=== PATIENT | female | born 1950 | race Hispanic/Latino ===

== ENCOUNTER 2020-07-28 06:32 | Observation (INO) | payer MEDICARE ==
[2020-07-26 12:40] LABS: BASOPHILS # (AUTO) 0.1 (0.0-0.1); BASOPHILS % 1.1 % (0.0-1.0); EOSINOPHILS # (AUTO) 0.5 (0.0-0.4); EOSINOPHILS % 6.6 % (0.0-6.0); HEMATOCRIT 43.2 % (34.2-44.1); HEMOGLOBIN 13.8 g/dL (12.0-16.0); LYMPHOCYTES # (AUTO) 1.8 (1.0-3.2); LYMPHOCYTES % 25.2 % (18.0-39.1); MEAN CORPUSCULAR HEMOGLOBIN 30.4 pg (28-32); MEAN CORPUSCULAR HGB CONC 31.9 g/dL (31-35); MEAN CORPUSCULAR VOLUME 95.2 fL (81-99); MONOCYTES # (AUTO) 0.6 (0.2-0.8); MONOCYTES % 8.8 % (4.4-11.3); NEUTROPHILS # (AUTO) 4.1 (2.1-6.9); NEUTROPHILS % 58.2 % (38.7-80.0); PLATELET COUNT 376 x10e3/uL (140-360); RED BLOOD COUNT 4.54 x10e6/uL (3.6-5.1); RED CELL DISTRIBUTION WIDTH 13.2 % (11.7-14.4)
[2020-07-26 12:47] LABS: INR 0.84
[2020-07-26 12:48] LABS: PARTIAL THROMBOPLASTIN TIME 28.8 seconds (23.8-35.5)
[2020-07-26 12:49] LABS: ANION GAP 18.5 mmol/L (8-16); BLOOD UREA NITROGEN 15 mg/dL (7-26); BUN/CREATININE RATIO 18 (6-25); CALCIUM 9.3 mg/dL (8.4-10.2); CARBON DIOXIDE 23 mmol/L (22-29); CHLORIDE 101 mmol/L (98-107); CREATININE, SERUM 0.85 mg/dL (0.57-1.11); EST GLOMERULAR FILTRATION RATE > 60 ML/MIN (60-); GLUCOSE 107 mg/dL (74-118); POTASSIUM 4.5 mmol/L (3.5-5.1); SODIUM 138 mmol/L (136-145)
[~2020-07-28] VITALS: Ht 160 cm; Wt 59.0 kg
[~2020-07-28 06:32] MED LIST: ACYCLOVIR200 MG PO; AREDS PO; FLONASE ALLERG9.9 ML INH; METFORMIN HCL500 MG PO
[2020-07-28] MEDS ORDERED: VANCOMYCIN HCL 1 GM VIAL ONE (06:58)
[2020-07-28] MEDS ORDERED: LIDOCAINE 1% W/EPINEPHRINE 20 ML VIAL ONE (06:58)
[2020-07-28] MEDS ORDERED: THROMBIN FOR SOLN 5,000 UNIT VIAL ONE (06:58)
[2020-07-28] MEDS ORDERED: LIDOCAINE HCL (LTA) 4 ML SOLN ONE (07:24)
[2020-07-28] MEDS ORDERED: ACETAMINOPHEN 1000 MG/100 ML 100 ML IV ONE (07:24)
[2020-07-28] MEDS ORDERED: IBUPROFEN 800MG/ 200ML 200 ML IV ONE (07:24)
[2020-07-28] MEDS ORDERED: CEFAZOLIN SOD 1 GM/NS 50ML 50 ML IV ONE (08:00)
[2020-07-28] MEDS ORDERED: SCOPOLAMINE 1.5 MG PATCH ONE (08:53)
[2020-07-28] MEDS ORDERED: CARISOPRODOL 350 MG TAB PO PRN (10:00)
[2020-07-28] MEDS ORDERED: MAGNESIUM/ALUMINUM/SIMETHICONE 30 ML UDC PO PRN (10:00)
[2020-07-28] MEDS ORDERED: ONDANSETRON HCL INJ 2MG/ML 2ML 2 MG/ML VIAL IV PRN (10:00)
[2020-07-28] MEDS ORDERED: ACETAMINOPHEN 325 MG TAB PO PRN (10:00)
[2020-07-28] MEDS ORDERED: PROMETHAZINE HCL (IM) 25 MG/ML VIAL IM PRN (10:00)
[2020-07-28] MEDS ORDERED: FENTANYL CITRATE/PF 100MCG/2 ML INJ ONE (10:48)
[2020-07-28] MEDS ORDERED: HYDROCODON-ACE1 EA12 PO (11:12)
[2020-07-28] MEDS ORDERED: MORPHINE SULFATE INJ 4 MG/ML INJ 1ML ONE (12:30)
[2020-07-28] MEDS ORDERED: MIDAZOLAM HCL 2 MG/2 ML VIAL ONE (13:38)
[2020-07-28] MEDS ORDERED: SEVOFLURANE INHAL SOLN 250 ML PEN BTL ONE (13:47)
[2020-07-28] MEDS ORDERED: ONDANSETRON HCL INJ 2MG/ML 2ML 2 MG/ML VIAL ONE (13:47)
[2020-07-28] MEDS ORDERED: DEXAMETHASONE SOD PHOS INJ 4 MG/ML VIAL ONE (13:47)
[2020-07-28] MEDS ORDERED: LIDOCAINE HCL 2% LOCAL INJ 5 ML SDV VIAL INJ ONE (13:47)
[2020-07-28] MEDS ORDERED: NEOSTIGMINE 1 MG/ML 10ML VIAL ONE (13:47)
[2020-07-28] MEDS ORDERED: PROPOFOL IV EMULSION 10 MG/ML 20 ML VIAL ONE (13:47)
[2020-07-28] MEDS ORDERED: LIDOCAINE HCL 2% JELLY 5 ML TUBE ONE (13:47)
[2020-07-28] MEDS ORDERED: GLYCOPYRROLATE INJ 0.2 MG/ML VIAL ONE (13:47)
[2020-07-28] MEDS ORDERED: ROCURONIUM BROMIDE 10 MG/ML 5ML VIAL IV ONE (13:47)
[2020-07-28 15:00] VITALS: BP 126/51
[2020-07-28] MEDS: LACTATED RINGER'S 1,000 ML IV SCH ×2 (16:00→16:02)
[2020-07-28] MEDS: AREDS PO SCH (16:16)
[2020-07-28] MEDS: MORPHINE SULFATE INJ 2 MG/ML SYR IV PRN ×3 (16:16→20:40)
[2020-07-28 16:18] VITALS: BP 126/51
[2020-07-28] MEDS: CEFAZOLIN SOD 1 GM/NS 50ML 50 ML IV SCH (16:37)
[2020-07-28] MEDS: METFORMIN HCL 500 MG TAB PO SCH (16:37)
[2020-07-28] MEDS: FLUTICASONE PROPIONATE NASAL SPRAY NS SCH (16:39)
[2020-07-28 19:46] VITALS: BP 111/57
[2020-07-28] MEDS ORDERED: ZOLPIDEM TARTRATE 5 MG TAB PO PRN (21:00)
[2020-07-28] MEDS: OXYCODONE/ACETAMINOPHEN 5-325 1 EACH TABLET PO PRN (22:51)
[2020-07-29] VITALS: BP 116/55
[2020-07-29] MEDS: LACTATED RINGER'S 1,000 ML IV SCH (01:21)
[2020-07-29 04:00] VITALS: BP 100/71
[2020-07-29 08:00] VITALS: BP 121/61
[2020-07-29 08:29] VITALS: BP 121/61
[2020-07-29] MEDS: AREDS PO SCH (09:00)
[2020-07-29] MEDS ORDERED: ACYCLOVIR 200 MG CAP PO SCH (09:00)
[2020-07-29] MEDS: CEFAZOLIN SOD 1 GM/NS 50ML 50 ML IV SCH ×2 (09:08)
[2020-07-29] MEDS: FLUTICASONE PROPIONATE NASAL SPRAY NS SCH (09:08)
[2020-07-29] MEDS: METFORMIN HCL 500 MG TAB PO SCH (09:08)
[2020-07-29] MEDS: OXYCODONE/ACETAMINOPHEN 5-325 1 EACH TABLET PO PRN (09:19)
== END 2020-07-29 10:57 | disposition home or self-care (01) ==
LOC: OR 06:32 → PACU V 09:49 → MED/SURG 14:41
PROVIDERS: ADMIT Neurological Surgery; ATTEND Neurological Surgery
DX: M51.16 Intervertebral disc disorders with radiculopathy, lumbar region (principal); Z88.5 Allergy status to narcotic agent; E11.9 Type 2 diabetes mellitus without complications; G47.33 Obstructive sleep apnea (adult) (pediatric); Z01.810 Encounter for preprocedural cardiovascular examination; Z01.812 Encounter for preprocedural laboratory examination; Z01.818 Encounter for other preprocedural examination; Z20.822 Contact with and (suspected) exposure to COVID-19
CPT/HCPCS: 36415 ×3; 63042; 71046; 72020; 80048; 82948 ×2; 85025; 85610; 85730; 86850; 86900; 88304; 88311; 93005; 96361; G0378 ×2; J0131; J0690 ×2; J2250; J2270 ×2; J3010; J3370; J7121; U0002; 96360; J1100; J2001; J2405; J2710